=== PATIENT | female | born 1965 | race Hispanic/Latino ===

== ENCOUNTER 2020-05-27 06:07 | Day surgery (SDC) | payer OTHER ==
[~2020-05-27] VITALS: Ht 160 cm; Wt 73.5 kg
[2020-05-27] VITALS (7 sets, daily range): BP systolic 112–146; BP diastolic 70–85
[~2020-05-27 06:07] MED LIST: LANS30CA55 PO; ONDA8TAB12 PO
[2020-05-27] MEDS ORDERED: SODIUM CHLORIDE 0.9% 1000ML 1,000 ML IV ONE (06:21)
[2020-05-27] MEDS ORDERED: PROPOFOL 10 MG/ML 20ML VIAL IV ONE ×2 (09:08→09:23)
[2020-05-27] MEDS ORDERED: MIDAZOLAM HCL 1 MG/ML 2ML VIAL ONE ×2 (09:08→09:17)
[2020-05-27] MEDS ORDERED: LIDOCAINE HCL 2% 20ML ONE (09:08)
== END 2020-05-27 10:35 | disposition home or self-care (01) ==
LOC: ENDO 06:07 → DAH 06:07 → ENDO 10:35
PROVIDERS: ATTEND Internal Medicine
DX: K22.2 Esophageal obstruction (principal); K21.0 Gastro-esophageal reflux disease with esophagitis; K31.89 Other diseases of stomach and duodenum; K29.51 Unspecified chronic gastritis with bleeding; E11.9 Type 2 diabetes mellitus without complications; E78.5 Hyperlipidemia, unspecified; K59.00 Constipation, unspecified; Z90.49 Acquired absence of other specified parts of digestive tract; Z79.899 Other long term (current) drug therapy; Z98.891 History of uterine scar from previous surgery; Z86.010 Personal history of colon polyps; Z87.19 Personal history of other diseases of the digestive system; Z83.3 Family history of diabetes mellitus; Z11.59 Encounter for screening for other viral diseases
CPT/HCPCS: 43238; 43239; 43249; 93005; A4215 ×2; A4221; A4222; A4223; A4606; A4620; A4657; A4663; C1726; J2250 ×2; J2704 ×2; J3490; J7030; U0003